=== PATIENT | female | born 1940 | race Caucasian/White ===

== ENCOUNTER → 2016-09-15 | Outpatient (CLI) | payer OTHER ==
[~2016-09-15] MED LIST: BENICAR; CALCIUM; CRESTOR40 MG; HCTZ; IBUPROFEN 600600 M1 PO; MULTI VIT; NORCO 5-325 TA1 EACH PO; OMEGA-3100 MG; TOPROL XL100 MG; ZYRTEC
== END ==
LOC: RAD 03:38
DX: Z12.31 Encounter for screening mammogram for malignant neoplasm of breast (principal)

== ENCOUNTER → 2016-10-14 | Outpatient (CLI) | payer OTHER ==
[~2016-10-14] VITALS: Ht 167.6 cm; Wt 63.5 kg
[~2016-10-14] MED LIST changes: +ATORVASTATIN CA80 MG PO; +CALCIUM 500 +1 EAC5 PO; +CENTRUM SILVER1 EAC4 PO; +LEVOTHYROXIN0.025 MG PO; +OMEGA-31000 M1 PO; +OSTEO BI-FLEX1 EAC4 PO; +PEPCID20 MG PO; +SORINE 80 MG TA80 M1 PO; +VITAMIN D1000 UNI1 PO; +VITAMINC500 PO; +XANAX 0.25 MG0.25 MG PO; +XARELTO20 MG PO; -ZYRTEC; +ZYRTEC10 M5 PO
--- NOTE | ~2016-10-14 | S ---
[facility] [place] [address] SURGICAL PATH RPT PROCEDURE Name: GILBERTO KUO Room #: REG [facility] M..#: [id number] Admission: 10/14/16 Date of : 42 Discharge: Report #: [id number] Path Case #: [id number] PATHOLOGY REPORT COLLECTION DATE: 10/14/2016 RECEIVED DATE: 10/14/2016 SUBMITTING PHYS: Dr. Ramana Valencia OTHER PHYS: Dr. Rai Batres SPECIMEN(S) RECEIVED: A.Gastric polyp * * * * * * * * * * * * FINAL DIAGNOSIS: "Gastric polyp", biopsy: - Gastric mucosa with foveolar hyperplasia consistent with hyperplastic polyp. (CLW:pit; 10/15/2016) PATHOLOGIST: Ivana Noyola M.D. REPORT ELECTRONICALLY SIGNED BY: Ivana Noyola M.D. DATE/TIME: 10/15/2016 14:25 * * * * * * * * * * * * GROSS PATHOLOGY: Received in formalin labeled "Gilberto Kuo gastric polyp," are 2 segments of tolentino soft tissue measuring 0.7 x 0.3 x 0.3 cm in aggregate dimensions and ranging from 0.3 to 0.4 cm in maximum dimension. The specimen is submitted entirely in cassette A1. (TSD; 10/14/2016) CLINICAL HISTORY: Pre-OP DX: Dysphagia Post-OP DX: Dilation, gastric polyps INITIAL CPT CODE(S): A; 00010 Professional services performed by [facility] at [facility] [address], [place] [address] Technical services performed by [facility] at [address] [place] [id number]. [facility] [address] [place] [address] SURGICAL PATH RPT PROCEDURE Name: ELMAELSARADHIKA Room #: REG CHAVO Rodriguez.#: [id number] Admission: 10/14/16 Date of : 42 Discharge: Report #: [id number] Path Case #: [id number] [facility] [id number] [address] PHONE: [phone] DIRECTOR: Matthieu Fuchs M.D. * * * END OF REPORT * * *
--- NOTE | ~2016-10-14 | P ---
[facility] [place] [address] PROCEDURE REPORT Name: GILBERTO KUO [id number] Admission: 10/14/16 Attend Phys: Ramana Valente Discharge: Date of : 42 Report #: [id number] THIS REPORT FOR: //name// CC: MARY Batres DATE OF SERVICE: 10/14/2016 PROCEDURE PERFORMED: Upper endoscopy with esophageal dilation and biopsies. HISTORY OF PRESENT ILLNESS: The patient is a 76-year-old female complains of low dysphagia, been ongoing for approximately a year, to the point where she has had regurgitate her food and pills at times. She does report some mild heartburn symptoms, takes Pepcid a.c. on a daily basis. No previous history of dilation in the past. DESCRIPTION OF PROCEDURE: The risks and benefits of the procedure were explained to the patient, those risks including but not limited to bleeding, perforation, the risk of sedation. She understood these risks and gave informed consent. Sedation was given using ketamine and propofol per anesthesia. Next, using a standard [employer] upper endoscope, the scope was placed in the patient's mouth and advanced under direct vision into the esophagus. The upper and mid esophagus were normal in appearance other than two small inlet patches were noted in the proximal esophagus; however, tight stricture was noted at the GE junction. I was not able to pass the standard upper endoscope through the stricture; therefore, a balloon catheter was then advanced into the stomach under direct vision without difficulty. I used a 10, 11, 12 balloon. This was dilated up to 12 mm maximum and held in place for one minute. The balloon was then deflated. There was a mucosal tear after dilation with a small amount of bleeding, which spontaneously stopped. I was able to pass the endoscope through the stricture at this point, a fairly usually. Overall, the gastric mucosa was normal; however, on retroflexion, there was a single gastric polyp in the high cardia, this was removed with a biopsy forceps. The gastric pylorus was normal and patent. The duodenal bulb, first and second portion were all normal. The scope was then withdrawn and the procedure terminated. The patient tolerated the procedure well. IMPRESSION: 1. Tight esophageal stricture at GE junction, status post balloon dilation. 2. Small gastric polyp. 3. Otherwise, normal upper endoscopy. RECOMMENDATIONS: 1. Observe the patient post-procedure. 2. Await biopsy results. [address] [address] PROCEDURE REPORT Name: GILBERTO KUO Room #: REG CLI [facility].#: [id number] Admission: 10/14/16 Attend Phys: Ramana Valente Discharge: Date of : 42 Report #: [id number] 3. Repeat dilation on a p.r.n. basis. Thank you for allowing me to participate in her care. <ELECTRONICALLY SIGNED> By: Ramana Valencia MD 10/16/16 0812 [id number] Ramana Valencia MD /nt
== END | disposition home or self-care (01) ==
LOC: GI 08:58
DX: K31.7 Polyp of stomach and duodenum (principal); K22.2 Esophageal obstruction; I10 Essential (primary) hypertension; E78.5 Hyperlipidemia, unspecified; K21.9 Gastro-esophageal reflux disease without esophagitis; F41.8 Other specified anxiety disorders; Z88.1 Allergy status to other antibiotic agents; Z88.0 Allergy status to penicillin; Z98.890 Other specified postprocedural states; Z85.821 Personal history of Merkel cell carcinoma; Z79.899 Other long term (current) drug therapy

== ENCOUNTER → 2017-03-03 | Outpatient (CLI) | payer OTHER ==
[~2017-03-03] VITALS: Ht 167.6 cm; Wt 63.5 kg
[~2017-03-03] MED LIST changes: +CO Q-10100 MG PO; +MELATONIN5 M1 PO
--- NOTE | ~2017-03-03 | P ---
[facility] [place] [address] PROCEDURE REPORT Name: GILBERTO KUO [facility] [id number] Admission: 03/03/17 Attend Phys: Ramana Valente Discharge: Date of : 42 Report #: [id number] THIS REPORT FOR: //name// CC: MARY Batres DATE OF SERVICE: 03/03/2017 PROCEDURE PERFORMED: Upper endoscopy with esophageal dilation. HISTORY OF PRESENT ILLNESS: The patient is a 76-year-old female with a history of dysphagia and known distal esophageal stricture, who underwent her first upper endoscopy by myself on 10/14/2016 for dysphagia. It was dilated with a balloon dilator at that time and the patient did improve; however, she is having recurrent dysphagia. Plan is for repeat upper endoscopy with dilation. DESCRIPTION OF PROCEDURE: The risks and benefits of the procedure were explained to the patient. Those risks including but not limited to bleeding, perforation and the risk of sedation. She understood these risks and gave informed consent. Sedation was given using propofol per anesthesia. Next, using a standard [employer] upper endoscope, the scope was placed in the patient's mouth and advanced under direct vision into the distal esophagus, at which point, the scope again would not pass through the stricture at the GE junction. At this point, a Savary guidewire was advanced through the scope into the stomach under direct vision without difficulty. The scope was then withdrawn, leaving the guidewire in place. Next, a 36-Mexican Savary dilation was then performed of the esophagus without difficulty. The dilator was removed, leaving the wire in place. The scope was reintroduced into the patient's esophagus. There was a mucosal tear with a small amount of bleeding, which spontaneously stopped at the GE junction. No further dilations were performed. I was then able to advance the scope fairly easily through the strictured area into the stomach. The gastric mucosa was normal. The pylorus was normal and patent. The duodenal bulb, first and second portion, were all normal. At this point, the scope was then withdrawn and the procedure terminated. The patient tolerated the procedure well. IMPRESSION: 1. Tight esophageal stricture at the gastroesophageal junction, status post dilation. 2. Small hiatal hernia. 3. Otherwise, normal upper endoscopy. RECOMMENDATIONS: [address] [address] PROCEDURE REPORT Name: GILBERTO KUO Room #: REG Ste[facility] Faustin#: [id number] Admission: 03/03/17 Attend Phys: Ramana Valente Discharge: Date of : 42 Report #: [id number] 1. Observe the patient post-procedure. 2. We discussed having the patient return in approximately 3-4 months with repeat dilation at that time. Thank you for allowing me to participate in her care. <ELECTRONICALLY SIGNED> By: Ramana Valencia MD 03/12/17 0808 [id number] [id number] Ramana Valencia MD /maynor
== END | disposition home or self-care (01) ==
LOC: GI 08:38
DX: K22.2 Esophageal obstruction (principal); K44.9 Diaphragmatic hernia without obstruction or gangrene; I10 Essential (primary) hypertension; I48.91 Unspecified atrial fibrillation; E03.9 Hypothyroidism, unspecified; E78.5 Hyperlipidemia, unspecified; K21.9 Gastro-esophageal reflux disease without esophagitis; F41.8 Other specified anxiety disorders; Z85.3 Personal history of malignant neoplasm of breast; Z85.821 Personal history of Merkel cell carcinoma; Z87.19 Personal history of other diseases of the digestive system; Z98.890 Other specified postprocedural states; Z88.0 Allergy status to penicillin; Z91.041 Radiographic dye allergy status; Z88.8 Allergy status to other drugs, medicaments and biological substances; Z79.899 Other long term (current) drug therapy
CPT/HCPCS: 62110; 62900

== ENCOUNTER → 2018-04-21 | Outpatient (CLI) | payer OTHER | LOC: CAT 08:45 | DX: K76.9 Liver disease, unspecified (principal); K57.30 Diverticulosis of large intestine without perforation or abscess without bleeding; M47.816 Spondylosis without myelopathy or radiculopathy, lumbar region; F41.1 Generalized anxiety disorder; E03.9 Hypothyroidism, unspecified; Z82.49 Family history of ischemic heart disease and other diseases of the circulatory system; Z85.3 Personal history of malignant neoplasm of breast ==

== ENCOUNTER → 2018-09-01 | Outpatient (CLI) | payer OTHER | LOC: RAD 01:54 | DX: Z08 Encounter for follow-up examination after completed treatment for malignant neoplasm (principal); Z85.3 Personal history of malignant neoplasm of breast ==

== ENCOUNTER → 2018-10-12 | Outpatient (CLI) | payer OTHER ==
[~2018-10-12] VITALS: Ht 167.6 cm; Wt 62.6 kg
[~2018-10-12] MED LIST changes: +ELIQUIS5 MG PO; -LEVOTHYROXIN0.025 MG PO; +SYNTHROID25 MC1 PO
--- NOTE | ~2018-10-12 | P ---
[facility] [place] [address] PROCEDURE REPORT Name: GILBERTO KUO Room #: REG [facility].#: [id number] Admission: 10/12/18 Attend Phys: Ramana Valente Discharge: Date of : 42 Report #: [id number] THIS REPORT FOR: //name// CC: MARY Batres DATE OF SERVICE: 10/12/2018 PROCEDURE PERFORMED: Upper endoscopy with esophageal dilation. HISTORY OF PRESENT ILLNESS: The patient is a 78-year-old female with recurrent dysphagia, has a known history of lower esophageal stricture. Last upper endoscopy was performed on 03/03/2017. The scope could not pass. At that time, I dilated her with 36-Indonesian Savary dilation. She was doing well up until recently, now with recurrent dysphagia. She takes Pepcid. Denies any heartburn symptoms. DESCRIPTION OF PROCEDURE: The risks and benefits of the procedure were explained to the patient, those risks including but not limited to bleeding, perforation and the risk of sedation. She understood these risks and gave informed consent. Sedation was given using propofol per anesthesia. Next, using a standard Olympus upper endoscope, the scope was placed in the patient's mouth and advanced under direct vision through the esophagus, stomach and into the second portion of the duodenum. The upper and mid esophagus was normal in appearance. In the distal esophagus, again a stricture was noted. The scope did pass this time through the area with mild resistance. Once again, a small hiatal hernia was noted. Overall, the gastric mucosa was normal. The pylorus was normal and patent. The duodenal bulb, first and second portion were all normal. The scope was then brought back up into the patient's stomach and a Savary guidewire was inserted through the scope, leaving the guidewire in place, I then performed as the scope was then withdrawn. I then performed serial dilations starting with a 36, followed by 39 next to a 42. No further dilations after 42 as there was a mucosal tear at that point. No significant bleeding. The scope was then withdrawn and the procedure terminated. The patient tolerated the procedure well. IMPRESSION: 1. Distal esophageal stricture dilated up to 42-Indonesian today. 2. Small hiatal hernia. 3. Otherwise, normal upper endoscopy. RECOMMENDATIONS: 1. Observe the patient post-dilation. 2. Repeat on a p.r.n. basis. [address] [address] PROCEDURE REPORT Name: GILBERTO KUO Room #: REG CLI Roxie#: [id number] Admission: 10/12/18 Attend Phys: Ramana Valente Discharge: Date of : 42 Report #: [id number] Thank you for allowing me to participate in her care. By: [id number] [id number] Ramana Valencia MD /nt
== END | disposition home or self-care (01) ==
LOC: GI 07:46
DX: K22.2 Esophageal obstruction (principal); R13.19 Other dysphagia; K44.9 Diaphragmatic hernia without obstruction or gangrene; F41.9 Anxiety disorder, unspecified; I10 Essential (primary) hypertension; E78.5 Hyperlipidemia, unspecified; E03.9 Hypothyroidism, unspecified; I48.91 Unspecified atrial fibrillation; Z79.01 Long term (current) use of anticoagulants; Z98.890 Other specified postprocedural states; Z85.3 Personal history of malignant neoplasm of breast; Z87.19 Personal history of other diseases of the digestive system; Z98.0 Intestinal bypass and anastomosis status; Z79.899 Other long term (current) drug therapy; Z91.041 Radiographic dye allergy status; Z88.0 Allergy status to penicillin; Z88.8 Allergy status to other drugs, medicaments and biological substances
CPT/HCPCS: 62110; 62900

== ENCOUNTER → 2019-09-04 | Outpatient (CLI) | payer OTHER | LOC: RAD 08:07 | PROVIDERS: ATTEND Specialist | DX: C50.911 Malignant neoplasm of unspecified site of right female breast (principal); N64.89 Other specified disorders of breast ==

== ENCOUNTER → 2020-09-04 | Outpatient (CLI) | payer OTHER | LOC: RAD 13:18 | PROVIDERS: ATTEND Internal Medicine | DX: Z12.31 Encounter for screening mammogram for malignant neoplasm of breast (principal) ==